=== PATIENT | male | born 1975 | race Caucasian/White ===

== ENCOUNTER 2022-04-14 10:26 | Outpatient (CLI) | payer OTHER | END 2022-04-14 10:27 | disposition home or self-care (01) | LOC: CSHLAB 10:26 | PROVIDERS: ATTEND Internal Medicine Gastroenterology | DX: Z20.822 Contact with and (suspected) exposure to COVID-19 (principal); K21.9 Gastro-esophageal reflux disease without esophagitis; K63.5 Polyp of colon | CPT/HCPCS: 87811 ==

== ENCOUNTER 2022-04-17 08:18 | Day surgery (SDC) | payer OTHER ==
[2022-04-14 15:30] VITALS: BMI 32.5
[2022-04-17] MEDS ORDERED: Lidocaine 2% MPF 10 ML AMP (For Epidural Use) ONE (10:34)
[2022-04-17] MEDS ORDERED: PROPOFOL 60 ML ONE (10:34)
[2022-04-17] MEDS ORDERED: Fentanyl 100 MCG/2 ML VIAL ONE (10:34)
[2022-04-17] MEDS ORDERED: Glycopyrrolate 0.2 MG/ML 5 ML SYRINGE ONE (10:34)
[2022-04-17] MEDS ORDERED: PROPOFOL 20 ML ONE ×2 (11:06→11:15)
== END 2022-04-17 11:58 | disposition home or self-care (01) ==
LOC: CSHSDC 08:18
PROVIDERS: ATTEND Internal Medicine Gastroenterology
PROC: 0DB68ZZ Excision of Stomach, Via Natural or Artificial Opening Endoscopic (ICD-10-PCS; principal; 2022-04-17)
PROC: 0DB48ZZ Excision of Esophagogastric Junction, Via Natural or Artificial Opening Endoscopic (ICD-10-PCS; principal; 2022-04-17)
PROC: 0DBN8ZZ Excision of Sigmoid Colon, Via Natural or Artificial Opening Endoscopic (ICD-10-PCS; principal; 2022-04-17)
PROC: 0DBP8ZZ Excision of Rectum, Via Natural or Artificial Opening Endoscopic (ICD-10-PCS; principal; 2022-04-17)
DX: Z12.11 Encounter for screening for malignant neoplasm of colon (principal); K63.5 Polyp of colon; K62.1 Rectal polyp; K21.00 Gastro-esophageal reflux disease with esophagitis, without bleeding; K25.9 Gastric ulcer, unspecified as acute or chronic, without hemorrhage or perforation; K64.9 Unspecified hemorrhoids; Z20.822 Contact with and (suspected) exposure to COVID-19; Z79.899 Other long term (current) drug therapy
CPT/HCPCS: 88305; 88342; J2704; J3010